=== PATIENT | male | born 1985 | race Hispanic/Latino ===

== ENCOUNTER → 2020-04-21 | Outpatient (CLI) | payer BC | END | disposition home or self-care (01) | LOC: SHCH 13:28 | PROVIDERS: ATTEND Internal Medicine Cardiovascular Disease | DX: I51.7 Cardiomegaly (principal); R06.00 Dyspnea, unspecified; R60.9 Edema, unspecified; R07.9 Chest pain, unspecified; M47.814 Spondylosis without myelopathy or radiculopathy, thoracic region | CPT/HCPCS: 71046; 78582; 93306; 93356; A9540; A9558 ==

== ENCOUNTER → 2020-04-26 | Outpatient (CLI) | payer BC | END | disposition home or self-care (01) | LOC: SHCH 08:41 | PROVIDERS: ATTEND Internal Medicine Cardiovascular Disease | DX: R60.9 Edema, unspecified (principal) | CPT/HCPCS: 93970 ==

== ENCOUNTER 2025-07-30 15:11 | Emergency (ER) | payer BC ==
[~2025-07-30] VITALS: Ht 170.2 cm; Wt 131.5 kg
[2025-07-30 15:14] VITALS: TEMP 97.8
--- NOTE | 2025-07-30 15:21 | ERN ---
ED Note History of Present Illness Stated Complaint: SOB Chief Complaint: Shortness of Breath Time Seen by MD: 15:16 Dictation: PATIENT IS A 40-YEAR-OLD MALE WITH A SIGNIFICANT MEDICAL HISTORY INCLUDE CHF RENAL TRANSPLANTATION IN 2003. TODAY WITH SHORTNESS A BREATH AND A COUGH NONPRODUCTIVE FOR THE LAST 3-4 DAYS. NO FEVER NO CHILLS NO NAUSEA VOMITING. 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. THINKS HE MAY HAVE PNEUMONIA ON-CALL. HE DENIES ANY CHANGE IN BLADDER FUNCTION URINATION NO FLANK PAIN. HE DID NOT GO SEE HIS PRIMARY CARE DOCTOR. Allergies: Coded Allergies: No Known Allergies (Unverified Allergy, Unknown, 07/30/25) Past Medical History Past Medical History: CHF, Hypertension, Other Additional Past Medical Hx: SLEEP APNEA Surgical History: Appendectomy, Other Surgical History Other: KIDNEY TRANSPLANT 2003 RN Note Reviewed/Agreed w/PFSH: Yes Review of System Dictation CONSTITUTIONAL: NEGATIVE EXCEPT FOR HPI HEAD/FACE: NEGATIVE EXCEPT FOR HPI EENT: NEGATIVE EXCEPT FOR HPI RESPIRATORY: NEGATIVE EXCEPT FOR HPI SHORTNESS A BREATH WITH COUGH GASTROINTESTINAL/ABDOMINAL: NEGATIVE EXCEPT FOR HPI GENITOURINARY: NEGATIVE EXCEPT FOR HPI MUSCULOSKELETAL: NEGATIVE EXCEPT FOR HPI INTEGUMENTARY: NEGATIVE EXCEPT FOR HPI NEUROLOGICAL/PSYCH: NEGATIVE EXCEPT FOR HPI HEMATOLOGIC/LYMPHATIC: NEGATIVE EXCEPT FOR HPI ALL SYSTEMS NEGATIVE, EXCEPT NOTED ABOVE. 13 POINT REVIEW OF SYSTEMS ASSESSED AND ALL NEGATIVE EXCEPT FOR ABOVE. Initial Vital Sign VS Vital Signs Date Time Temp Pulse Resp B/P (MAP) Pulse Ox O2 Delivery O2 Flow Rate FiO2 07/30/25 15:14 97.9 99 20 145/106 99 Room Air 07/30/25 16:43 0 21 Physical Exam Dictation VITAL SIGNS REVIEWED GENERAL APPEARANCE: ALERT, ORIENTED X 3, NO ACUTE DISTRESS, WELL DEVELOPED, NOURISHED. OBESE HEAD AND FACE: NON-TRAUMATIC. EYES: PERRL, PINK CONJUNCTIVAS, EYELID NO TRAUMA, ANTERIOR CHAMBER WITH ARCUS SENILIS. EARS: PINNAS INTACT AND NO SIGNS OF TRAUMA OR ERYTHEMA EAR CANALS CLEAR AND NO DISCHARGE TM NO ERYTHEMA NOSE: NO DISCHARGE, NO BLEEDING. OROPHARYNX: MOUTH NORMAL, TONGUE PINK, PHARYNX CLEAR,NO ERYTHEMA, TONSILS NO EXUDATES, NO ABSCESSES NOTED, MUCOUS MEMBRANE MOIST NECK: SUPPLE, NON-TENDER, NO THYROMEGALY, NO MASSES, NO JVD, NO BRUITS BREAST:DEFERRED CHEST:NO TENDERNESS, NO CREPITUS, NO PARADOXICAL MOVEMENT, NO RETRACTIONS LUNGS:CLEAR, WELL-VENTILATED, SYMMETRIC, NO RALES, NO WHEEZING, NO RHONCHI, NO STRIDOR, GOOD BREATH SOUNDS BILATERALLY NO TACHYPNEA NO RETRACTIONS HEART: REGULAR RATE, REGULAR RHYTHM, NO MURMUR, NO GALLOPS VASCULAR: NO PERIPHERAL EDEMA, ABDOMEN: SOFT, POSITIVE BOWEL SOUNDS, NONDISTENDED, NO GUARDING, NONTENDER, NO REBOUND, NO MASSES NO HEPATOMEGALY, NO SPLENOMEGALY, NO ACEVEDO'S SIGN, NO HERNIAS. RECTAL: DEFERRED GENITAL: DEFERRED NEUROLOGICAL: NORMAL SPEECH, MOTOR FUNCTION INTACT, SENSORY FUNCTION INTACT MUSCULOSKELETAL: NECK NONTENDER, FULL RANGE OF MOTION, BACK NONTENDER, FULL RANGE OF MOTION, EXTREMITIES: NONTENDER, FULL RANGE OF MOTION SKIN: COLOR PINK, DRY, NO TURGOR, NO RASH, NO LACERATIONS, NO ABRASIONS, NO CONTUSIONS. LYMPHATIC: DEFERRED Results (Laboratory/Radiology) Laboratory/Radiology Laboratory Tests Test 07/30/25 16:00 07/30/25 16:45 White Blood Count 8.7 K/uL (4.8-10.8) Red Blood Count 4.77 MIL/uL (4.50-6.20) Hemoglobin 12.8 g/dL (14.0-18.0) L Hematocrit 40.3 % (42-54) L Mean Corpuscular Volume 84.5 fL (79-99) Mean Corpuscular Hemoglobin 26.8 pg (27.0-33.0) L Mean Corpuscular Hemoglobin Concent 31.8 g/dL (32.0-36.0) L Red Cell Distribution Width 13.5 % (11.0-15.5) Platelet Count 169 K/uL (130-400) Mean Platelet Volume 11.1 fL (7.5-10.5) H Immature Granulocyte % (Auto) 0.3 % (0-1) Neutrophils (%) (Auto) 72.3 % (40.0-77.0) Lymphocytes (%) (Auto) 17.5 % (21.0-51.0) L Monocytes (%) (Auto) 7.8 % (3.0-13.0) Eosinophils (%) (Auto) 1.6 % (0.0-8.0) Basophils (%) (Auto) 0.5 % (0.0-5.0) Neutrophils # (Auto) 6.3 K/uL (1.8-7.7) Lymphocytes # (Auto) 1.5 K/uL (1.0-4.8) Monocytes # (Auto) 0.7 K/uL (0.1-1.0) Eosinophils # (Auto) 0.14 K/uL (0.00-0.70) Basophils # (Auto) 0.04 K/uL (0.00-0.20) Absolute Immature Granulocyte (auto 0.03 K/uL (0-1) Nucleated Red Blood Cells 0.0 % (0.0-0.19) Sodium Level 141 mmol/L (136-145) Potassium Level 3.8 mmol/L (3.5-5.1) Chloride Level 107 mmol/L (101-111) Carbon Dioxide Level 25 mmol/L (21-32) Blood Urea Nitrogen 19 mg/dL (7-18) H Creatinine 1.5 mg/dL (0.5-1.3) H Glomerular Filtration Rate Calc 60 mL/min (>90) Random Glucose 110 mg/dL (70-105) H Lactic Acid Level 1.2 mmol/L (0.8-2.5) Total Calcium 8.2 mg/dL (8.5-10.1) L Magnesium Level 1.70 mg/dL (1.80-2.40) L Troponin I High Sensitivity 15 ng/L (4-75) B-Type Natriuretic Peptide 422 pg/mL (0-100) H SARS-CoV-2 Antigen (Rapid) PRESUMPTIVE NEGATIVE hest, 1 View. CLINICAL HISTORY: SHORTNESS A BREATH COMPARISON: None provided. FINDINGS: LUNGS: There is no mass, infiltrate, or acute pulmonary abnormality. PLEURAL SPACES: No evidence of pleural effusion or pneumothorax. MEDIASTINUM: The cardiomediastinal silhouette is within normal limits. BONES: No acute osseous abnormality. IMPRESSION: No acute cardiopulmonary pathology is evident. /[place] Labs Reviewed?: Yes EKG Comment: 1529/EKG sinus tachycardia/heart rate 100/occasional premature PVCs. Left atrial enlargement mild T-wave inversion leads V4 V5 ED Course ED Course Orders Procedure Category Date Status Time Blood Cult GAGE 07/30/25 In Process 15:18 Lactic Acid LAB 07/30/25 Complete 15:18 B-Type Natriuretic LAB 07/30/25 Complete Peptide 15:18 Covid19 (Sars Antigen LAB 07/30/25 Complete Rapid) 15:18 Cbc With Differential LAB 07/30/25 Complete 15:18 Chest 1vw RAD 07/30/25 Resulted 15:18 12 Lead Ekg Tracing- EKG 07/30/25 Complete Technical 15:18 Magnesium LAB 07/30/25 Complete 15:18 Troponin I High LAB 07/30/25 Complete Sensitivity 15:18 Urinalysis Profile LAB 07/30/25 Logged 15:18 Basic Metabolic Panel LAB 07/30/25 Complete 15:18 Magnesium Oxide PHA 07/30/25 In Process (Mag-Ox) 18:30 Current Medications Medications (Trade) Dose Ordered Sig/Alejandra Route PRN Reason Start Time Stop Time Status Last Admin Dose Admin Magnesium Oxide (Mag-Ox) 400 mg ONCE ONCE PO 07/30/25 18:30 07/30/25 18:31 07/30/25 18:11 Vital Signs Date Time Temp Pulse Resp B/P (MAP) Pulse Ox O2 Delivery O2 Flow Rate FiO2 07/30/25 16:43 95 18 146/102 98 Room Air* 0 21 07/30/25 15:14 97.9 99 20 145/106 99 Room Air 1825/PATIENT STATES HE FEELS IMPROVED AFTER TREATMENT. DISCHARGED HOME TO FOLLOW UP WITH HIS PRIMARY CARE DOCTOR ON FRIDAY. HEART Score Response (Comments) Value EKG: Repolarization changes 1 Age: 45-65yrs (+1) 1 Risk Factors: 3+ risk factors (+2) 2 Initial Troponin: Normal limit (0) 0 Total 4 Medical Decision Making MDM MDM: DIFFERENTIAL DIAGNOSIS: ACS/AMI/CHF/ELECTROLYTE IMBALANCE/DEHYDRATION/EFFUSION/SARS COVID/ELECTROLYTE IMBALANCE/DEHYDRATION RATIONALE: TESTS CONSIDERED AND ORDERED SECONDARY TO SHARED DECISION MAKING INCLUDE: LABS/RADIOLOGY/EKG PREVIOUS OUTSIDE RECORDS REVIEWED: OLD ER VISITS. RISK OF COMPLICATION AND/OR MORBIDITY OR MORTALITY OF PATIENT MANAGEMENT: NONE MEDICATIONS-PER MEDICATION RECONCILIATION NEED FOR HOSPITALIZATION: PATIENT DOES NOT MEET CRITERIA FOR HOSPITALIZATION. NONE NEED FOR EMERGENCY MAJOR/MINOR SURGERY: NO THERE ARE NO SOCIAL CONCERNS WITH THIS PATIENT. PRESCRIPTION DRUG MANAGEMENT LASIX/MAGNESIUM PRESCRIPTIONS WILL INCLUDE SYMPTOMATIC CARE PATIENT'S PRIOR EXTERNAL MEDICAL RECORDS FROM OTHER ER VISITS WERE REVIEWED BY ME INDICATED. PRIOR TESTING AND RESULTS FROM PREVIOUS VISITS WERE REVIEWED. PRIOR TESTS WERE TAKEN INTO ACCOUNT WITH MEDICAL DECISION MAKING AND RESOURCE UTILIZATION, INDEPENDENT HISTORIAN/HISTORIANS WERE USED TO OBTAIN COMPLETE MEDICAL HISTORY. I INDEPENDENTLY INTERPRETED THE TEST THAT WERE PERFORMED, RESULTS WERE REVIEWED BY ME AND CONSIDERED FINDINGS ON RADIOLOGY IF ORDERED. MEDICAL MANAGEMENT AND EXAMINATION INTERPRETATION DISCUSSIONS WERE HAD BY ME WITH OTHER QUALIFIED HEALTHCARE PROFESSIONALS INDICATED FOR THE PATIENT'S CARE. DX & DISP Disposition: Discharge Departure Impression: Primary Impression: Elevated brain natriuretic peptide (BNP) level Additional Impressions: Stage 3 chronic kidney disease, Anemia of chronic renal failure, stage 3a, Hypomagnesemia, Obesity, Palpitations Condition: Stable Scripts Magnesium Oxide/Mag Aa Chelate (Magnesium 300 mg Capsule) 300 Mg Capsule 300 MG PO DAILY for 10 Days, #10 CAP 0 Refills Prov: CAROLYN CASTRO 07/30/25 Furosemide (Furosemide) 40 Mg Tablet 1 TAB PO DAILY for 5 Days, #5 TAB 0 Refills Prov: CAROLYN CASTRO 07/30/25 Additional Instructions: FOLLOW-UP WITH PRIMARY CARE PROVIDER IN 1 TO 2 DAYS. TAKE MEDICATIONS DIRECTED HERE IN THE EMERGENCY ROOM. OKAY TO CONTINUE HOME MEDICATIONS UNLESS OTHERWISE DISCUSSED DURING YOUR VISIT IN THE EMERGENCY ROOM TODAY. RETURN TO YOUR NEAREST EMERGENCY ROOM IF SYMPTOMS WORSEN OR IF THERE IS NO IMPROVEMENT. CALL 911 IF YOU NEED IMMEDIATE ASSISTANCE. TAKE TYLENOL OR MOTRIN [id number] NEEDED AND IF NO CONTRAINDICATIONS ARE PRESENT. INCREASE ORAL HYDRATION. A WOUND CULTURE OR URINE CULTURE WAS ORDERED HERE IN THE EMERGENCY ROOM DEPARTMENT PLEASE FOLLOW-UP WITH PRIMARY CARE PROVIDER AND ADVISE THEM TO GET REPEAT PORTS FROM OUR FACILITY. IF YOU HAD ANY SANDHYA WRAP/SPLINTS THAT WERE APPLIED HERE, PLEASE DO NOT REMOVE THEM UNTIL YOU SEE YOUR PRIMARY CARE OR SPECIALTY. TAKE MAGNESIUM DIRECTED UNTIL GONE. TAKE LASIX FOR THE NEXT FIVE DAYS DIRECTED UNTIL GONE. NO WORK UNTIL CLEARED BY YOUR PRIMARY CARE DOCTOR ON FRIDAY OR FRIDAY. Referrals: CHRISTOPHER GARCES DO (PCP) Time of Disposition: 18:26 I have reviewed the case, and I agree with, Diagnosis and Plan CARLOYN CASTRO Jul 30, 2025 15:21
--- NOTE | 2025-07-30 15:30 | NUR ---
PT JUST PLACED IN ED BED 9
--- NOTE | 2025-07-30 15:39 | EKG ---
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
[2025-07-30 16:08] LABS: IMMATURE GRANULOCYTE ABSOLUTE 0.03 K/uL (0-1); NUCLEATED RED BLOOD CELLS 0.0 % (0.0-0.19); PLATELET COUNT (AUTO) 169 K/uL (130-400); RED BLOOD CELL COUNT(AUTO) 4.77 MIL/uL (4.50-6.20); RED CELL DISTRIBUTION WIDTH 13.5 % (11.0-15.5); WHITE BLOOD COUNT (AUTO) 8.7 K/uL (4.8-10.8)
--- NOTE | 2025-07-30 16:46 | NUR ---
URINAL AT BEDSIDE FOR PENDING UA COLLECTION
[2025-07-30 16:54] LABS: CREATININE 1.5 mg/dL (0.5-1.3); GLOMERULAR FILTR. RATE CALC 60.0 mL/min (>90); GLUCOSE,RANDOM 110.0 mg/dL (70-105); SODIUM SERUM 141.0 mmol/L (136-145); UREA NITROGEN, BLOOD 19.0 mg/dL (7-18)
--- NOTE | 2025-07-30 17:11 | HMCIMG ---
EXAM: CR Chest, 1 View. CLINICAL HISTORY: SHORTNESS A BREATH COMPARISON: None provided. FINDINGS: LUNGS: There is no mass, infiltrate, or acute pulmonary abnormality. PLEURAL SPACES: No evidence of pleural effusion or pneumothorax. MEDIASTINUM: The cardiomediastinal silhouette is within normal limits. BONES: No acute osseous abnormality. IMPRESSION: No acute cardiopulmonary pathology is evident. /[place]
[2025-07-30] MEDS: MAGNESIUM OXIDE 400 MG TABLET PO ONE (18:11)
[2025-07-30 18:56] VITALS: BP 10/51; PULSE 92; RESP 17; O2SAT 97
== END 2025-07-30 18:59 | disposition home or self-care (01) ==
LOC: EDH 15:11
DX: I13.0 Hypertensive heart and chronic kidney disease with heart failure and stage 1 through stage 4 chronic kidney disease, or unspecified chronic kidney disease (principal); N18.31 Chronic kidney disease, stage 3a; I50.9 Heart failure, unspecified; D63.1 Anemia in chronic kidney disease; E83.42 Hypomagnesemia; R00.2 Palpitations; E66.9 Obesity, unspecified; R79.89 Other specified abnormal findings of blood chemistry; Z90.49 Acquired absence of other specified parts of digestive tract; Z20.822 Contact with and (suspected) exposure to COVID-19
CPT/HCPCS: 36415; 71045; 80048; 83605; 83735; 83880; 84484; 85025; 87040; 87426; 93005; 99284